=== PATIENT | female | born 1990 | race Caucasian/White ===

== ENCOUNTER → 2017-08-09 | Outpatient (CLI) | payer OTHER ==
--- NOTE | 2017-08-09 14:33 | RADIOLOGY IMAGING REPORT ---
FACILITY: [facility] PATIENT NAME: Tashi Lamas : 1990 MR: [id number] V: [id number] EXAM DATE: ORDERING PHYSICIAN: LINN SANTANA TECHNOLOGIST: Location: [facility] Patient: Tashi Lamas : 1990 Visit/Account:[id number] Date of Sevice: 08/09/2017 Transvaginal OB Ultrasound HISTORY: Early , unknown LMP, right lower quadrant pain, history of polycystic ovary syndro me COMPARISON: June 30, 2016 TECHNIQUE: Transvaginal imaging was performed for detailed assessment of the uterus, , and o varies. FINDINGS: Gestational sac: Single, intrauterine, and unremarkable Yolk sac: Visualized. Embryo: Visualized. Embryonic cardiac activity: 167 bpm Estimated gestational age by LMP of unknown: Ultrasound age: Nine weeks and one day by crown-rump length of 2.4 cm Subchorionic hemorrhage: None visualized. Uterus: Gravid, otherwise unremarkable. Maternal ovaries: Right ovary measures 4 x 3.1 x 3.3 cm. Left ovary measures 3.9 x 4.9 x 2.1 cm. Nu merous small follicles are identified throughout both ovaries which can be seen with polycystic ovary syndrome Adnexa: Negative Free pelvic fluid: None. IMPRESSION: Single viable intrauterine gestation estimated age of nine weeks and one day by crown-rump length. F etal cardiac activity was 167 bpm Report Dictated By: Luly Alexander MD at 08/09/2017 1:52 PM Report E-Signed By: Luly Alexander MD at 08/09/2017 2:29 PM WSN:[id number]
== END ==
LOC: US 11:11
PROVIDERS: ATTEND Obstetrics & Gynecology
DX: Z34.91 Encounter for supervision of normal pregnancy, unspecified, first trimester (principal); Z3A.09 9 weeks gestation of pregnancy; E28.2 Polycystic ovarian syndrome
CPT/HCPCS: 76817

== ENCOUNTER 2018-03-06 05:36 | Inpatient (IN) | payer OTHER ==
[~2018-03-06] VITALS: Ht 157.5 cm; Wt 74.8 kg
[2018-03-06] VITALS (20 sets, daily range): BP systolic 93–118; BP diastolic 47–70; Ht 157.5 cm; Wt 74.8 kg
[2018-03-06] MEDS ORDERED: cefOXitin/DEX(*) 2GM/50ML PREM 50 ML IVPB ONE (05:40)
[2018-03-06] MEDS ORDERED: CITRIC ACID/SOD CITRATE 30 ML PO ONE (05:40)
[2018-03-06] MEDS ORDERED: FAMOTIDINE 20 MG/50 ML PREMIX IVPB ONE (05:40)
[2018-03-06] MEDS ORDERED: METOCLOPRAMIDE 10 MG/2 ML SDV IVP ONE (05:40)
[2018-03-06 06:19] LABS: PLATELET COUNT, AUTOMATED 174 K/uL (150-450)
[2018-03-06] MEDS ORDERED: OXYTOCIN 10 UNIT/ML SDV ONE ×2 (06:45→06:46)
[2018-03-06] MEDS ORDERED: MORPHINE PF 5 MG/10 ML AMP ONE (06:45)
[2018-03-06] MEDS ORDERED: fentaNYL CITR 100 MCG/2 ML AMP ONE (06:45)
[2018-03-06] MEDS ORDERED: ONDANSETRON 4 MG/2 ML VIAL ONE (06:55)
[2018-03-06] MEDS ORDERED: CITRIC ACID/SOD CIT 15 ML UDC PO ONE (07:05)
[2018-03-06] MEDS ORDERED: ePHEDrine 25 MG/5 ML DISP.SYR IVP ONE (07:44)
[2018-03-06] MEDS: LR(*) 1000 ML BAG 1,000 ML IV SCH ×2 (07:58→07:59)
[2018-03-06] MEDS ORDERED: PNV11TAB (08:03)
[2018-03-06] MEDS ORDERED: METF-452 PO (08:03)
[2018-03-06] MEDS ORDERED: KETOROLAC 30 MG/ML VIAL ONE (08:05)
--- NOTE | 2018-03-06 08:52 | Post Operative Note ---
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
[2018-03-06] MEDS ORDERED: OXYTOCIN 30 UNIT/D5LR 500 ML 500 ML IV PRN (08:54)
[2018-03-06] MEDS ORDERED: SIMETHICONE 80 MG CHEW CHEW PRN (08:55)
[2018-03-06] MEDS ORDERED: ACETAMINOPHEN 325 MG TAB PO PRN (08:55)
[2018-03-06] MEDS ORDERED: PROMETHAZINE 25 MG/ML 1 ML AMP IVP PRN (08:55)
[2018-03-06] MEDS ORDERED: ONDANSETRON 4 MG/2 ML VIAL IVP PRN (08:55)
[2018-03-06] MEDS ORDERED: LANOLIN OINT 7 GM TUBE TP PRN (08:55)
[2018-03-06] MEDS: DOCUSATE CALCIUM 240 MG CAP PO SCH ×2 (09:00→20:26)
[2018-03-06] MEDS: FAMOTIDINE 20 MG TAB PO SCH ×2 (09:00→20:26)
--- NOTE | 2018-03-06 09:11 | Anesthesia OB Pre-Anes Eval ---
History of Present Illness Anesthesia Start Date: Mar 06, 2018 Anesthesia Start Time: 07:27 OB Anesthesia Diagnosis: primary c/section (breech presentation) EDC: Mar 13, 2018 : 1 Para: 0 Vital Signs: Vital Signs Date Time Temp Pulse Resp B/P (MAP) Pulse Ox O2 Delivery O2 Flow Rate FiO2 03/06/18 06:30 98.8 89 16 115/70 (85) 97 Room Air Pain Ratin Result Diagram: 03/06/18 0609 Height (Inches): 62.00 Weight (Pounds): 165 Past Medical History Medical History: other (PCOS) Surgical History: noncontributory Previous Anesthesia: general Attended Childbirth Classes?: No Hx Anesthesia Reactions: No Hx Family Anesthesia Reaction: No Home Meds Reported Medications Metformin Hcl (METFORMIN HCL) 1,000 Mg Tablet, 1 TAB PO QDAY, TAB 03/06/18 [id number]/Iron Fumarate/Fa/Dss ( 19 TABLET) 1 Each Tablet 03/06/18 Allergies: Coded Allergies: No Known Drug Allergies (Unverified , 03/06/18) Anesthesia OB ROS Neurological: No migraines/headaches, No seizures, No neuropathy, No other ENT: Denies Tooth caps, Denies Loose teeth, Denies Chipped teeth, Denies Dentures, Denies Bridges, Denies Retainers, Denies Veneers, Denies Implants, Denies Tongue ring, Denies Other Pulmonary: No asthma, No smoker (pks/day/yrs), No other Airway Class: ll Cardiovascular ROS: No edema, No arrhythmia, No other GI ROS: NPO ROS: No Herpes, No STD(s), No Liver Disease, No Renal Disease, No Other Endocrine ROS: No diabetes, No gestational diabetes, No thyroid disorder, No other Musculoskeletal ROS: No low back pain, No low back injury, No scoliosis, No other ASA Classification: 2 Assessment and Plan Anesthesia Plan: SAB Anesthesia Stop Day: Mar 06, 2018 Anesthesia Stop Time: 08:53 LINDY SALAZAR CRNA Mar 06, 2018 09:11
--- NOTE | 2018-03-06 09:12 | Procedure Note ---
Anesthetic Placement Note Anesthesia Plan: SAB Permit for Anesthesia Signed: Yes Anesthesia Technique: Patient Sitting Anesthesia Prep: Chlorhexidine Interspace: L 3-4 Local Anesthetic: 1% Lidocaine, 25 Gauge Needle Amount Local - cc's: 2 Anesthesia Needle: 25g Pencan w/Introducer Anesthesia Attempts: 1 Cerebral Spinal Fluid: Yes, Clear Anesthesia Tray: Lot Number ([id number]), Expiration Date (12/26/2018), Reference Number ([id number]) LINDY SALAZAR CRNA Mar 06, 2018 09:12
--- NOTE | 2018-03-06 09:21 | OPERATIVE REPORT 1 ---
EVENT DATE: March 06, 2018 SURGEON: Jayson Rondon MD ANESTHESIOLOGIST: ANESTHESIA: Spinal. PREOPERATIVE DIAGNOSIS 1. 39 week intrauterine . 2. Breech presentation. POSTOPERATIVE DIAGNOSIS 1. 39 week intrauterine . 2. Breech presentation. PROCEDURE PERFORMED Primary low transverse section via Pfannenstiel skin incision. ESTIMATED BLOOD LOSS 700 cc. FLUIDS 1400 cc IV Crystalloid. FINDINGS Female infant stephanie breech presentation, left sacrum anterior, Apgars 8 and 9, weight 3972 grams, normal appearing uterus, tubes and ovaries. DESCRIPTION OF PROCEDURE The patient was brought to the operating room with a working IV. Spinal anesthetic was placed and she was moved to the dorsal lithotomy position with a leftward tilt and prepped and draped in the usual sterile fashion. Using the knife, a Pfannenstiel skin incision was made and carried through to the underlying rectus fascia. This was nicked in the midline and extended laterally. The rectus fascia was dissected off the underlying rectus muscles using sharp dissection and they were in the midline using sharp dissection. The peritoneum was entered sharply. This incision was extended superiorly and entered. A bladder blade was inserted deflecting the bladder away from the operative area. The vesicouterine peritoneum was tented, entered sharply and extended laterally using sharp dissection. The bladder flap was created digitally. Using the scalpel, a low transverse incision was made on the uterus and carried through to the intraamniotic space. There was clear fluid upon amniotomy. A hand was inserted, the was found in the left sacrum anterior stephanie breech presentation. The presentation was elevated to the incision, fundal pressure was applied and manipulation was performed to deliver the infant past the sacrum. The legs were flexed at the hip and the knee and delivery of the legs were complete. The baby was rotated, sacrum anterior and delivered to the level of the shoulder. Both arms were then delivered by sweeping the arm across the chest and flexing at the elbow. Once both arms were delivered and further fundal pressure was applied and the head delivered spontaneously. Mouth and nose were bulb suctioned. The cord was clamped, cut, and the infant was passed to the awaiting resuscitation team. A cord sample was obtained. The placenta was delivered manually. The uterus was exteriorized and cleared of all clots and debris. The uterine repair was performed with a #1 Monocryl in a running locking stitch. A second suture of the same type was used to imbricate the first layer completing a two layer closure. Once hemostatic, the uterus was returned to the abdomen. Bilateral pelvic gutters were irrigated and cleared of all clots and debris. The parietal peritoneum was repaired using a 3-0 Vicryl in a running nonlocking stitch. The rectus muscles were reapproximated in the midline with the same stitch. The rectus fascia was then repaired with an 0 Vicryl in a running nonlocking stitch. The subcuticular space was irrigated and swept clear of clots and debris and a few capillary bleeders were cauterized. The space was closed with a 3-0 Vicryl plus in a running nonlocking stitch. The skin was further closed with a 4-0 Monocryl simple subdermal and covered with Dermabond skin adhesive. She tolerated the procedure well. Sponge, lap, needle and instrument counts were all correct times 3. She was taken to recovery in stable condition. WOODY
[2018-03-06] MEDS ORDERED: LR(*) 1000 ML BAG 1,000 ML ONE (09:30)
[2018-03-06] MEDS: KETOROLAC 30 MG/ML VIAL IVP SCH ×2 (13:57→20:28)
[2018-03-06] MEDS: DLR(*) 1000 ML BAG 1,000 ML IV PRN ×2 (14:09→20:36)
[2018-03-06] MEDS ORDERED: ZOLPIDEM TARTRATE 5 MG TAB PO PRN (21:00)
[2018-03-07 02:45] VITALS: BP 110/70
[2018-03-07] MEDS: KETOROLAC 30 MG/ML VIAL IVP SCH (02:50)
[2018-03-07] MEDS: DLR(*) 1000 ML BAG 1,000 ML IV PRN (02:50)
[2018-03-07 06:38] LABS: PLATELET COUNT, AUTOMATED 148 K/uL (150-450)
[2018-03-07 08:00] VITALS: BP 101/77
[2018-03-07] MEDS: FERROUS SULFATE 325 MG TAB PO SCH ×2 (08:49→17:17)
[2018-03-07] MEDS: IBUPROFEN 800 MG TAB PO SCH ×2 (08:49→17:17)
[2018-03-07] MEDS: FAMOTIDINE 20 MG TAB PO SCH (08:49)
[2018-03-07] MEDS: DOCUSATE CALCIUM 240 MG CAP PO SCH (08:49)
[2018-03-07] MEDS ORDERED: DIPHTH/TETANUS/ACEL. PERTUSSIS IM ONLY ONE (08:55)
[2018-03-07] MEDS ORDERED: INFLUENZA VIRUS VAC 0.5ML SYR IM ONLY ONE (08:55)
[2018-03-07] MEDS ORDERED: MEASLES,MUMP,RUBELLA VAC 0.5ML SUBQ ONE (08:55)
--- NOTE | 2018-03-07 09:24 | OB/GYN Progress Note ---
OB Subjective Progress Notes Subjective 27 yo female is PP day #1 s/p for breech postion. Gallo removed earlier this morning, has been able to ambulate, no void yet. Moderate vaginal bleeding. Hgb low at 8.7, tolerating without symptoms, no tachycardia or hypotension. GI: POS Flatus; NEG Nausea, NEG Vomiting : Vaginal Bleeding, Moderate Pain: Mild, Tolerating PO Pain Meds OB Objective Physical Exam Vital Signs Date Time Temp Pulse Resp B/P (MAP) Pulse Ox O2 Delivery O2 Flow Rate FiO2 03/07/18 04:55 82 16 96 Room Air 03/07/18 02:45 98.7 110/70 (83) 03/06/18 20:26 1.0 Intake and Output 03/07/18 07:00 Intake Total 4453 ml Output Total 2725 ml Balance 1728 ml Intake Oral 800 ml IV Total 3653 ml Output Urine Total 1975 ml Emesis 750 ml # Emeses 2 General Appearance: Alert/Awake/No Acute Distress Neurological: No Gross deficits Cardiovascular: Normal Rhythm & Peripheral Pulses Respiratory: No Respiratory Distress, Clear to Auscultation Abdomen: Fundus Firm, Other (soft, non-distended, normal bowel sounds. Tender near incision as expected. Incision is clean dry and intact with skin glue) Incision: Clean, Dry, Intact, Dermabond : Normal Extremities: No Cyanosis,Clubbing or Edema Integumentary: Skin Intact without Lesions or Rash Result Diagram: 03/07/18 0624 Assessment and Plan Post Day: 1 RESPIRATORY CARE ASSISTANT Assessment: Stable RESPIRATORY CARE ASSISTANT Plan: Routine Post- Care, Discharge Home Tomorrow Problems: (1) Delivery by section for breech presentation Assessment & Plan: Low H&H this morning, tolerating. Add iron supplementation and recheck in the morning. Will draw CBC sooner if has increased bleeding or becomes symptomatic. Plan for d/c home tomorrow if continues to do well. SERENE RUTHERFORD Mar 07, 2018 09:24
--- NOTE | 2018-03-07 11:07 | Anesthesia Post Eval Note ---
Anesthesia Post Eval Note Vital Signs Date Time Temp Pulse Resp B/P (MAP) Pulse Ox O2 Delivery O2 Flow Rate FiO2 03/07/18 04:55 82 16 96 Room Air 03/07/18 02:45 98.7 110/70 (83) 03/06/18 20:26 1.0 Pt able to participate in Eval: Yes Cardiovascular Status: Satisfactory Respiratory Status: Satisfactory Pain Managment: Satisfactory PO Nausea/Vomiting: Satisfactory Temperature Management: Satisfactory Mental Status: Satisfactory, Alert, Oriented X3 Post-Op Hydration Status: Satisfactory, Tolerating PO Well, Voiding w/o D ifficulty Anesthesia Type: SAB Anesthesia Tolerance: Pain well controlled. Nausea/vomiting yesterday, none today. Tolerating diet. Ambulating well. No anesthesia concerns. LINDY SALAZAR CRNA Mar 07, 2018 11:07
[2018-03-07 13:15] VITALS: BP 111/65
[2018-03-07 16:55] VITALS: BP 107/51
[2018-03-07 20:15] VITALS: BP 114/68
[2018-03-07 23:02] VITALS: BP 118/66
[2018-03-08] MEDS: IBUPROFEN 800 MG TAB PO SCH (01:31)
[2018-03-08 03:10] VITALS: BP 112/69
[2018-03-08 08:30] VITALS: BP 119/82
[2018-03-08] MEDS ORDERED: IBUP800T37 PO (08:56)
[2018-03-08] MEDS ORDERED: OXYC-865 PO (08:56)
[2018-03-08] MEDS ORDERED: FERR-41 PO (08:56)
[2018-03-08] MEDS ORDERED: DOCU-416 PO (08:56)
[2018-03-08 08:58] LABS: PLATELET COUNT, AUTOMATED 177 K/uL (150-450)
--- NOTE | 2018-03-08 08:59 | OB/GYN Discharge Summary ---
Discharge Summary Reason for Hosp/Final Diag: (1) Delivery by section for breech presentation Hospital Course & Plan: day 2 s/p for breech presentation. She is doing well without acute issues overnight. CBC pending to ensure H&H is stable, vaginal bleeding improving. Tolerating PO, no nausea/vomiting. Voiding w ell after olson was removed yesterday. Breast feeding . Discharge home today once repeat CBC is done. Lates Vital Signs Vital Signs Date Time Temp Pulse Resp B/P (MAP) Pulse Ox O2 Delivery O2 Flow Rate FiO2 03/08/18 03:10 98.7 92 18 112/69 (83) 93 03/07/18 13:15 Room Air 03/06/18 20:26 1.0 Weight (Pounds): 165 Result Diagram: 03/07/18 0624 Condition: Improved Discharge: Home, Self Group Home Meds Active Scripts Oxycodone Hcl/Acetaminophen (PERCOCET 5-325 MG TABLET) 1 Each Tablet, 1 EACH PO Q4-6H PRN for PAIN, #30 TAB 0 Refills TAKE 1 TABLET NEEDED FOR PAIN - NO CLOSER THAN EVERY 4-6 HOURS. Prov:SERENE RUTHERFORD 03/08/18 Reported Medications Metformin Hcl (METFORMIN HCL) 1,000 Mg Tablet, 1 TAB PO QDAY, TAB 03/06/18 Gub203/Iron Fumarate/Fa/Dss ( 19 TABLET) 1 Each Tablet 03/06/18 [facility] [phone], Dr. Rondon [phone] Follow up in: 2 wks PO Discharge Diet: As Tolerates Discharge Activity: No Heavy Lifting > 10lb SERENE RUTHERFORD Mar 08, 2018 08:59
== END 2018-03-08 11:45 | disposition home or self-care (01) | DRG 788 ==
LOC: OB 05:36
PROVIDERS: ADMIT Obstetrics & Gynecology; ATTEND Obstetrics & Gynecology
PROC: 10D00Z1 Extraction of Products of Conception, Low, Open Approach (ICD-10-PCS; principal; 2018-03-06 07:30)
DX: O32.1XX0 Maternal care for breech presentation, not applicable or unspecified (principal); O34.83 Maternal care for other abnormalities of pelvic organs, third trimester; E28.2 Polycystic ovarian syndrome; Z3A.39 39 weeks gestation of pregnancy; Z37.0 Single live birth
CPT/HCPCS: 36415; 85014; 85018; 85025; 86703; 86850; 86900; 86901; J0694; J1885; J2270; J2370; J2405; J2550; J2590; J2765; J3010; J3490; J7120